=== PATIENT | male | born 1955 | race Two or more races ===

== ENCOUNTER 2021-09-01 01:10 | Emergency (ER) | payer OTHER ==
[~2021-09-01] VITALS: Ht 162.6 cm; Wt 72.6 kg
[2021-09-01] MEDS ORDERED: TAMS0.4C (02:25)
[2021-09-01] MEDS ORDERED: AVAPRO75 MG (02:25)
[2021-09-01] MEDS ORDERED: KETO10TA2 PO (05:28)
== END 2021-09-01 05:49 | disposition home or self-care (01) ==
LOC: ER 01:10
DX: S80.02XA Contusion of left knee, initial encounter (principal); W17.89XA Other fall from one level to another, initial encounter; Y93.89 Activity, other specified; Y92.89 Other specified places as the place of occurrence of the external cause; Y99.8 Other external cause status